=== PATIENT | female | born 1960 | race Caucasian/White ===

== ENCOUNTER 2017-12-24 00:27 | Emergency (ER) | payer BC, OTHER ==
[2017-12-24] MEDS ORDERED: Aspirin 81 MG Tab.Chew PO ONE (00:47)
--- NOTE | 2017-12-24 01:02 | EDM.PDOC ---
ED HPI GENERAL MEDICAL PROBLEM - General Chief Complaint: Chest Pain Stated Complaint: HEARTBURN/HRT ATTACK?? Time Seen by Provider: 12/24/17 00:35 Source of Information: Reports: Patient History Limitations: Reports: No Limitations - History of Present Illness INITIAL COMMENTS - FREE TEXT/NARRATIVE: This 57 yo female patient reports to the ED due to chest pain. The patient reports that she was awaken by a sharp pain in her chest about 20 minutes prior to coming to the ED. The patient reports when she noticed the chest pain, she took aspirin (thinking the pain was her heartburn), but then threw up. The patient reports her pain was a 10 /10 before vomiting, but a 4/10 after vomiting. The patient reports she now feels mostly normal. Onset: Today Duration: Minutes: (20), Improving Location: Reports: Chest Quality: Reports: Ache, Sharp Severity: Moderate Improves with: Reports: Other (vomiting) Worsens with: Reports: None Associated Symptoms: Reports: Chest Pain, Nausea/Vomiting Mid-Sternal Chest Pain Score (Numeric/FACES): 4 - Related Data Allergies Allergy/AdvReac Type Severity Reaction Status Date / Time MO Inhibitors Allergy Cannot Verified 12/24/17 00:35 Remember Past Medical History HEENT History: Reports: Cataract Endocrine/Metabolic History: Reports: Diabetes, Type I - Past Surgical History HEENT Surgical History: Reports: Myringotomy w Tube(s) Musculoskeletal Surgical History: Reports: Carpal Tunnel Social & Family History - Tobacco Use Smoking Status *Q: Current Every Day Smoker Years of Tobacco use: 30 Packs/Tins Daily: 0.5 Second Hand Smoke Exposure: Yes - Recreational Drug Use Recreational Drug Use: No ED ROS GENERAL - Review of Systems Review Of Systems: ROS reveals no pertinent complaints other than HPI. ED EXAM, GENERAL - Physical Exam Exam: See Below Exam Limited By: No Limitations General Appearance: Alert, WD/WN, Mild Distress Eye Exam: Bilateral Eye: EOMI, Normal Inspection, PERRL Ears: Normal External Exam, Normal Canal, Hearing Grossly Normal, Normal TMs Nose: Normal Inspection, Normal Mucosa, No Blood Throat/Mouth: Normal Inspection, Normal Lips, Normal Teeth, Normal Gums, Normal Oropharynx, Normal Voice, No Airway Compromise Head: Atraumatic, Normocephalic Neck: Normal Inspection, Supple, Non-Tender, Full Range of Motion Respiratory/Chest: No Respiratory Distress, Lungs Clear, Normal Breath Sounds, No Accessory Muscle Use, Chest Non-Tender Cardiovascular: Normal Peripheral Pulses, Regular Rate, Rhythm, No Edema, No Gallop, No JVD, No Murmur, No Rub GI/Abdominal: Normal Bowel Sounds, Soft, Non-Tender, No Organomegaly, No Distention, No Abnormal Bruit, No Mass (Female) Exam: Deferred Rectal (Female) Exam: Deferred Back Exam: Normal Inspection, Full Range of Motion, NT Extremities: Normal Inspection, Normal Range of Motion, Non-Tender, Normal Capillary Refill, No Pedal Edema Neurological: Alert, Oriented, CN II-XII Intact, Normal Cognition, Normal Gait, Normal Reflexes, No Motor/Sensory Deficits Psychiatric: Normal Affect, Normal Mood Skin Exam: Warm, Dry, Intact, Normal Color, No Rash Lymphatic: No Adenopathy Course - Vital Signs Last Recorded V/S: Last Vital Signs Temp 35.8 C 12/24/17 00:30 Pulse 70 12/24/17 00:30 Resp 18 12/24/17 00:30 BP 147/70 H 12/24/17 00:30 Pulse Ox 100 12/24/17 00:30 - Orders/Labs/Meds Orders: Active Orders 24 hr Category Date Time Status EKG Documentation Completion [RC] URGENT Care 12/24/17 00:36 Active Labs: Laboratory Tests 12/24/17 12/24/17 12/24/17 Range/Units 00:38 00:38 04:45 WBC 11.0 H (5.0-10.0) 10^3/uL RBC 4.58 (4.2-5.4) 10^6/uL Hgb 14.8 (12.0-16.0) g/dL Hct 43.1 (37.0-47.0) % MCV 94.1 (80-100) fL MCH 32.3 (27.0-34.0) pg MCHC 34.3 (33.0-35.0) g/dL Plt Count 253 (150-450) 10^3/uL Neut % (Auto) 40.8 L (42.2-75.2) % Lymph % (Auto) 46.3 (20.5-50.1) % [place] % (Auto) 10.6 H (2-8) % Eos % (Auto) 2.0 (1.0-3.0) % Baso % (Auto) 0.3 (0.0-1.0) % Sodium 141 (135-145) mmol/L Potassium 4.5 (3.6-5.0) mmol/L Chloride 104 (101-111) mmol/L Carbon Dioxide 33.0 H (21.0-31.0) mmol/L Anion Gap 8.5 BUN 16 (7-18) mg/dL Creatinine 0.8 (0.6-1.3) mg/dL Est Cr Clr Drug Dosing 68.61 mL/min Estimated GFR (MDRD) > 60 BUN/Creatinine Ratio 20.00 Glucose 130 H (74-105) mg/dL Calcium 8.9 (8.4-10.2) mg/dl Total Bilirubin 0.6 (0.2-1.0) mg/dL AST 35 (10-42) IU/L ALT 31 (10-60) IU/L Alkaline Phosphatase 70 (42-121) IU/L Troponin I < 0.02 < 0.02 (0.00-0.02) ng/ml Total Protein 6.8 (6.7-8.2) g/dl Albumin 3.6 (3.2-5.5) g/dl Globulin 3.2 Albumin/Globulin Ratio 1.13 Meds: Medications Discontinued Medications Generic Name Dose Route Start Last Admin Trade Name Freq PRN Reason Stop Dose Admin Aspirin 324 mg 12/24/17 00:47 12/24/17 00:50 Aspirin PO 12/24/17 00:48 324 mg ONETIME ONE Administration Departure - Departure Time of Disposition: 05:17 Disposition: Home, Self-Care 01 Condition: Fair Clinical Impression: Non-cardiac chest pain Instructions: Nonspecific Chest Pain, [id number] Forms: ED Department Discharge Care Plan Goals: The patient was advised of the examination, lab, EKG and x-ray result during the visit. The patient was encourage do continue to monitor her symptoms. If the patient has any additional symptoms or concerns, the patient should follow- up with her primary care facility or return to the emergency department. - My Orders Last 24 Hours: My Active Orders 12/24/17 00:36 EKG Documentation Completion [RC] URGENT - Assessment/Plan Last 24 Hours: My Active Orders 12/24/17 00:36 EKG Documentation Completion [RC] URGENT
[2017-12-24 01:05] LABS: CHLORIDE,CL 104 mmol/L (101-111); SODIUM,NA 141 mmol/L (135-145)
--- NOTE | 2017-12-26 12:37 | EKG ---
12/24/2017 - LG MUÑIZ - FINDINGS: A 12-lead EKG shows normal sinus rhythm with heart rate of 70. No significant ST elevation or ST depression noted on this 12-lead EKG except for nonspecific ST-T wave changes on lead V3 and V4. [facility] /[id number]
== END 2017-12-24 05:24 | disposition home or self-care (01) ==
LOC: DL.ED 00:27
DX: R07.89 Other chest pain (principal); E10.9 Type 1 diabetes mellitus without complications; F17.210 Nicotine dependence, cigarettes, uncomplicated
CPT/HCPCS: 36415; 71045; 80053; 84484; 85025; 93005; 99285; A9270

== ENCOUNTER 2025-03-27 14:38 | Emergency (ER) | payer OTHER ==
[2025-03-27] MEDS ORDERED: Sodium Chloride 0.9% 10 ML Syringe FLUSH PRN (14:50)
[2025-03-27] MEDS: Ondansetron 4 MG/2 ML SDV IVPUSH ONE ×2 (15:00→15:45)
[2025-03-27 15:02] LABS: BASOPHILS PERCENT AUTO 0.1 % (0.0-1.0); EOSINOPHILS PERCENT AUTO 0.1 % (1.0-3.0); HEMOGLOBIN 13.5 g/dL (12.0-16.0); LYMPHOCYTES PERCENT AUTO 3.4 % (20.5-50.1); MEAN CORPUSCULAR HEMOGLOBIN 33.8 pg (27.0-34.0); MEAN CORPUSCULAR HGB CONC 33.8 g/dL (33.0-35.0); MEAN CORPUSCULAR VOLUME 100.3 fL (80-100); MONOCYTES PERCENT AUTO 6.1 % (2-8); NEUTROPHILS PERCENT AUTO 90.3 % (42.2-75.2); PLATELET COUNT,PLT 327 10^3/uL (150-450); RED BLOOD CELL COUNT 3.99 10^6/uL (4.2-5.4); WHITE BLOOD CELL COUNT,WBC 15.7 10^3/uL (5.0-10.0)
[2025-03-27 15:14] LABS: ANION GAP 21.6 mEq/L (7-13); BLOOD UREA NITROGEN,BUN 39 mg/dL (7-18); CALCIUM 9.7 mg/dL (8.5-10.1); CARBON DIOXIDE,CO2 19 mmol/L (21-32); CHLORIDE,CL 97 mmol/L (98-107); CREATININE 1.87 mg/dL (0.55-1.02); ESTIMATED GFR 30 mL/min (>=60); GLUCOSE RANDOM 524 mg/dL (70-99); POTASSIUM,K 5.6 mmol/L (3.5-5.1); SODIUM,NA 132 mmol/L (136-145)
[2025-03-27 15:21] LABS: PROTHROMBIN TIME 10.1 SEC (9.0-12.0)
[2025-03-27] MEDS: Hydrocortisone Sodium Succinate 100 MG/2 ML SDV IVPUSH ONE (15:21)
[2025-03-27] MEDS: Sodium Chloride 0.9% 1,000 ML IV ONE (15:21)
[2025-03-27] MEDS: Norepinephrine Bit/D5W Premix 250 ML ONE (15:22)
[2025-03-27] MEDS: Norepinephrine Bit/D5W Premix 250 ML IV SCH (15:25)
[2025-03-27 15:27] LABS: LACTIC ACID 2.4 mmol/L (0.4-2.0)
[2025-03-27 15:29] LABS: O2 DELIVERY DEVICE ROOM AIR
[2025-03-27 15:30] LABS: BICARBONATE,VENOUS 17 mmol/l (19-25); O2 SATURATION VENOUS 55.8 % (60-80); PCO2 VENOUS 37 mmHg (41-51); PO2 VENOUS 39 mmHg (35-42)
[2025-03-27] MEDS ORDERED: 50% Dextrose in Water 50 ML Syringe IVPUSH PRN (15:33)
[2025-03-27] MEDS ORDERED: Glucagon,Human Recombinant 1 MG Vial IM PRN (15:33)
[2025-03-27] MEDS: Albuterol 0.083% 2.5 MG/3 ML Neb Soln NEB ONE (15:48)
[2025-03-27] MEDS: Insulin Regular in 0.9 % NACL 100 ML IV SCH (15:48)
[2025-03-27 15:55] LABS: KETONES,BLOOD SMALL-20 mg/dL
[2025-03-27 16:00] LABS: C-REACTIVE PROTEIN 11.57 ng/dL (<=0.50); MAGNESIUM 1.7 mg/dL (1.8-2.4)
[2025-03-27] MEDS: Piperacillin/Tazobactam 4.5 GM in Sodium Chloride 0.9% 100 ML IV ONE (16:38)
== END 2025-03-27 19:00 ==
LOC: DL.ED 14:38
DX: A41.9 Sepsis, unspecified organism (principal); R65.21 Severe sepsis with septic shock; N17.9 Acute kidney failure, unspecified; E10.10 Type 1 diabetes mellitus with ketoacidosis without coma; I25.10 Atherosclerotic heart disease of native coronary artery without angina pectoris; E78.00 Pure hypercholesterolemia, unspecified; I10 Essential (primary) hypertension; E03.9 Hypothyroidism, unspecified; Z88.2 Allergy status to sulfonamides; Z79.4 Long term (current) use of insulin; Z79.890 Hormone replacement therapy; Z79.899 Other long term (current) drug therapy; Z79.82 Long term (current) use of aspirin; Z95.5 Presence of coronary angioplasty implant and graft
CPT/HCPCS: 36415; 71045; 71250; 80048; 82009; 82803; 82947; 83605; 83735; 84484; 85025; 85379; 85610; 86140; 87040; 93005; 96365; 96366; 96368; 96375; 96376; 99285; A9270; J1720; J2405; J2543; J7030; J7040; J7613; 93010; 99291